=== PATIENT | female | born 1950 | race African-American/Black ===

== ENCOUNTER 2017-12-27 15:46 | Observation (INO) | payer MEDICARE, OTHER, MEDICAID ==
[2017-12-27 17:00] LABS: ADD MAN DIFF? NO
[2017-12-27] MEDS: morphine 2 MG INJ IV (17:00)
[2017-12-27 17:02] LABS: WHITE BLOOD COUNT 8.2 10^3/ul (4.8-10.8)
[2017-12-27 17:02] LABS: BASOPHIL # 0.1 10^3/ul (0.0-0.1); BASOPHILS % 0.6 % (0.0-2.0); EOSINOPHILS # 0.1 10^3/ul (0.0-0.5); EOSINOPHILS % 1.2 % (0.0-7.0); HEMATOCRIT 40.1 % (37.0-47.0); HEMOGLOBIN 13.1 g/dl (12.0-16.0); LYMPHOCYTES # 2.8 10^3/ul (0.8-2.9); LYMPHOCYTES % 34.1 % (15.0-51.0); MEAN CORPUSCULAR HEMOGLOBIN 29.4 pg (29.0-33.0); MEAN CORPUSCULAR HGB CONC 32.7 g/dl (32.0-37.0); MEAN CORPUSCULAR VOLUME 89.9 fl (82.0-101.0); MEAN PLATELET VOLUME 10.1 fl (7.4-10.4); MONOCYTE # 0.6 10^3/ul (0.3-0.9); MONOCYTES % 7.2 % (0.0-11.0); NEUTROPHIL # 4.6 10^3/ul (1.6-7.5); NEUTROPHILS % 56.5 % (39.0-77.0); PLATELET COUNT 233 10^3/UL (140-415); RED BLOOD COUNT 4.46 10^6/ul (4.20-5.40); RED CELL DISTRIBUTION WIDTH 14.2 % (11.5-14.5)
[2017-12-27] MEDS: CLOPIDOGREL 300 MG TAB PO (17:14)
[2017-12-27 17:38] LABS: BLOOD UREA NITROGEN 6 mg/dl (7-20); CALCIUM 9.8 mg/dl (8.4-10.2); CARBON DIOXIDE 30 mmol/L (21-31); CHLORIDE 104 mmol/L (97-110); CREATININE 0.61 mg/dl (0.44-1.00); GLUCOSE 120 mg/dl (70-220); POTASSIUM 3.6 mmol/L (3.5-5.1); SODIUM 142 mmol/L (135-144)
[2017-12-27 17:50] LABS: TROPONIN-I < 0.012 ng/ml (0.000-0.120)
[2017-12-27] MEDS ORDERED: NACL 0.9% 3 ML SYG IV (18:30)
[2017-12-27] MEDS ORDERED: IBUPROFEN 600 MG TAB PO (18:30)
[2017-12-27] MEDS: HYDROCODONE/APAP (5/325) TAB PO (19:48)
[2017-12-27] MEDS: ONDANSETRON 4 MG INJ IV (20:14)
[2017-12-27 20:51] LABS: D-DIMER < 220.00 ng/ml (<460)
[2017-12-27] MEDS: DOCUSATE SODIUM 100 MG CAP PO (21:45)
[2017-12-27 23:12] LABS: CREATINE KINASE 82 IU/L (23-200)
[2017-12-27 23:24] LABS: CK INDEX 0.4; TROPONIN-I < 0.012 ng/ml (0.000-0.120)
[2017-12-28] MEDS: HYDROCODONE/APAP (5/325) TAB PO ×4 (01:57→19:56)
[2017-12-28 05:31] LABS: ADD MAN DIFF? NO
[2017-12-28 05:39] LABS: BASOPHILS % 0.4 % (0.0-2.0); EOSINOPHILS # 0.2 10^3/ul (0.0-0.5); EOSINOPHILS % 2.3 % (0.0-7.0); HEMATOCRIT 36.7 % (37.0-47.0); HEMOGLOBIN 11.8 g/dl (12.0-16.0); LYMPHOCYTES # 3.2 10^3/ul (0.8-2.9); LYMPHOCYTES % 45.1 % (15.0-51.0); MEAN CORPUSCULAR HEMOGLOBIN 29.4 pg (29.0-33.0); MEAN CORPUSCULAR HGB CONC 32.2 g/dl (32.0-37.0); MEAN CORPUSCULAR VOLUME 91.5 fl (82.0-101.0); MEAN PLATELET VOLUME 10.5 fl (7.4-10.4); MONOCYTE # 0.6 10^3/ul (0.3-0.9); MONOCYTES % 8.7 % (0.0-11.0); NEUTROPHIL # 3.1 10^3/ul (1.6-7.5); NEUTROPHILS % 43.4 % (39.0-77.0); PLATELET COUNT 215 10^3/UL (140-415); RED BLOOD COUNT 4.01 10^6/ul (4.20-5.40); RED CELL DISTRIBUTION WIDTH 14.4 % (11.5-14.5)
[2017-12-28 05:56] LABS: HEMOGLOBIN A1C 5.7 % (0-5.9)
[2017-12-28 05:59] LABS: CREATINE KINASE 57 IU/L (23-200)
[2017-12-28 06:04] LABS: ALANINE AMINOTRANSFERASE 20 IU/L (13-69); ALBUMIN 3.9 g/dl (3.3-4.9); ALBUMIN/GLOBULIN RATIO 1.18; ALKALINE PHOSPHATASE 51 IU/L (42-121); ASPARTATE AMINO TRANSFERASE 19 IU/L (15-46); BILIRUBIN,INDIRECT 0.2 mg/dl (0-1.1); BILIRUBIN,TOTAL 0.2 mg/dl (0.2-1.3); BLOOD UREA NITROGEN 12 mg/dl (7-20); CALCIUM 9.1 mg/dl (8.4-10.2); CARBON DIOXIDE 28 mmol/L (21-31); CHLORIDE 110 mmol/L (97-110); CREATININE 0.63 mg/dl (0.44-1.00); GLUCOSE 106 mg/dl (70-220); POTASSIUM 4.2 mmol/L (3.5-5.1); SODIUM 145 mmol/L (135-144); TOTAL PROTEIN 7.2 g/dl (6.1-8.1)
[2017-12-28 06:11] LABS: CK INDEX 0.5; TROPONIN-I < 0.012 ng/ml (0.000-0.120)
[2017-12-28] MEDS: POLYETHYLENE GLYCOL 17 GM PACKET PO ×3 (09:00→20:09)
[2017-12-28] MEDS: DOCUSATE SODIUM 100 MG CAP PO ×3 (09:00→20:09)
[2017-12-28 09:15] LABS: ANION GAP 7 (5-13)
[2017-12-28 10:08] LABS: ANION GAP 8 (5-13)
[2017-12-28] MEDS: REGADENOSON 0.4 MG/5 ML SYG (11:55)
[2017-12-28] MEDS ORDERED: NITROGLYCERIN (SL) 0.4 MG TAB SL (12:00)
[2017-12-28] MEDS: SOD CHLORIDE 0.9% 1,000 ML IV (19:56)
[2017-12-28] MEDS: METOPROLOL 25 MG TAB PO (20:09)
[2017-12-29] MEDS: HYDROCODONE/APAP (5/325) TAB PO ×4 (02:06→19:52)
[2017-12-29] MEDS: METOPROLOL 25 MG TAB PO ×2 (08:56→19:53)
[2017-12-29] MEDS: DOCUSATE SODIUM 100 MG CAP PO ×2 (08:57→19:52)
[2017-12-29] MEDS: POLYETHYLENE GLYCOL 17 GM PACKET PO (08:58)
[2017-12-29] MEDS: NA PHOSPHATE/BIPHOS 133 ML ENEMA PR (11:47)
[2017-12-30] MEDS: HYDROCODONE/APAP (5/325) TAB PO ×3 (02:11→14:01)
[2017-12-30] MEDS: METOPROLOL 25 MG TAB PO (08:09)
[2017-12-30] MEDS: POLYETHYLENE GLYCOL 17 GM PACKET PO (08:09)
== END 2017-12-30 17:46 | disposition home health service (06) ==
LOC: TEL 12-29 20:54 → E/R 15:46 → TEL 18:00
DX: R07.89 Other chest pain (principal); I10 Essential (primary) hypertension; F41.9 Anxiety disorder, unspecified
CPT/HCPCS: 36415; 71045; 73070; 73120; 73510; 73560; 78452; 80048; 80053; 82550; 82553; 83036; 84484; 85025; 85378; 93005; 93017; 93306; 96374; 99285-25; G0378